=== PATIENT | female | born 1950 | race Caucasian/White ===

== ENCOUNTER → 2017-12-23 | Outpatient (CLI) | payer MEDICARE, OTHER ==
[~2017-12-23] MED LIST: ASPI-715 PO; BUD8.6RPT NS; ERG400 PO; ESTR-25 PO; ESTR1 PV; FEX60 PO; FISH OIL1 CAP PO; FLAX100030 PO; MULT-804 PO; VAL500 PO; VITA1CAP46 PO; VITE400 PO; [UNRECOGNIZED DRUG - CODE] PO; [UNRECOGNIZED DRUG - CODE] PO; [UNRECOGNIZED DRUG - OTHER] ENA
--- NOTE | 2017-12-26 09:56 | RADIOLOGY IMAGING REPORT ---
FACILITY: [facility] - [place] PATIENT NAME: JACQUELIN LAURENT : [id number] MR: [id number] V: [id number] EXAM DATE: ORDERING PHYSICIAN: ARTURO MONTESINOS TECHNOLOGIST: Mimi Green PROCEDURE:BILATERAL DIGITAL SCREENING MAMMOGRAM WITH CAD ASSISTED INTERPRETATION & 3D TOMOSYNTHESIS COMPARISON:Prior mammograms 12/20/16, 01/08/16, 12/27/14, 03/27/14, 12/26/12, 12/20/11 INDICATIONS:SCREENING FINDINGS: Moderately heterogeneous fibroglandular tissue is seen throughout the breasts. The parenchymal pattern has remained stable allowing for difference in mammographic technique & patient positioning. There is no evidence of malignant appearing mass, malignant appearing calcifications or other secondary sign of malignancy in either breast. DIAGNOSTIC CATEGORY 1--NEGATIVE. RECOMMENDATIONS: ROUTINE MAMMOGRAM AND CLINICAL EVALUATION. IMPRESSION: BIRADS 1: Negative No significant abnormality is seen. Dictated by: Cecy Mixon M.D. on 12/23/2017 at 15:26 Transcribed by: CARLOS ENRIQUE on 12/23/2017 at 15:28 Approved by: Cecy Mixon M.D. on 12/26/2017 at 9:54 [facility]
== END ==
LOC: MAMO 03:21
PROVIDERS: ATTEND Nurse Practitioner Family
DX: Z12.31 Encounter for screening mammogram for malignant neoplasm of breast (principal)
CPT/HCPCS: 77063; 77067